=== PATIENT | male | born 1970 | race Caucasian/White ===

== ENCOUNTER 2017-02-24 15:58 | Emergency (ER) | payer SELFPAY | END 2017-02-24 18:42 | disposition home or self-care (01) | LOC: D.ER 15:58 | DX: T52.0X1A Toxic effect of petroleum products, accidental (unintentional), initial encounter (principal); Y92.89 Other specified places as the place of occurrence of the external cause; F90.9 Attention-deficit hyperactivity disorder, unspecified type ==